=== PATIENT | male | born 1955 | race Caucasian/White ===

== ENCOUNTER 2016-10-27 17:52 | Inpatient (IN) ==
[2016-10-27] MEDS ORDERED: ONDANSETRON 4 MG/2 ML VIAL IV PRN (17:54)
[2016-10-27] MEDS ORDERED: LACTULOSE 20 GM/30 ML UDCUP PO PRN (17:54)
[2016-10-27] MEDS ORDERED: ACETAMINOPHEN 325 MG TABLET PO PRN (17:54)
--- NOTE | 2016-10-27 18:11 | Hospitalist History & Physical ---
Assessment and Plan (1) Hypertension Status: Acute Current Visit: Yes (2) BPH (benign prostatic hypertrophy) Status: Acute Current Visit: No (3) COPD (chronic obstructive pulmonary disease) with chronic bronchitis Status: Acute Assessment and plan: Plan for this patient #1 admit the patient our service #2 scheduled breathing treatments #3 of the steroids #4 IV antibiotics #5 home meds as appropriate #6 chest x-ray and basic labs Current Visit: No History of Present Illness Chief complaint: shortness of breath History of present illness: Mr. Bonilla is a 61 year old male past medical history significant for COPD and hypertension who was in his normal state of health until Tuesday. Patient at times are getting short of breath and a productive cough. He went to the [place] [facility] and was given a shot of Rocephin a Medrol Dosepak and it I week supply of Levaquin. Patient was doing nebulizer treatments at home thought he was doing well. He went back to work today. While at work he got significantly short of breath and then he went to Dr. Hernandez's office. When he saw Dr. Rg he felt that the patient needs to be admitted to the hospital. We've except to him as a direct transfer. Home Medications Medication Instructions Recorded Confirmed Type Amlodipine Besylate 10 mg PO DAILY 01/18/16 10/27/16 History Clopidogrel Bisulfate [Clopidogrel] 75 mg PO DAILY 01/18/16 10/27/16 History Gabapentin 300 mg PO TID 01/18/16 10/27/16 History Meloxicam 15 mg PO DAILY 01/18/16 10/27/16 History Montelukast Sodium 10 mg PO QPM 01/18/16 10/27/16 History Tamsulosin [Flomax] 0.4 mg PO DAILY 01/18/16 10/27/16 History Theophylline ER Tab 300 mg PO BID 01/18/16 10/27/16 History predniSONE TAB [PredniSONE] 40 mg PO DAILY #5 tablet 01/19/16 10/27/16 Rx Budesonide/Formoterol 160-4.5 2 puff INH BID 10/27/16 History [Symbicort 160-4.5] Sildenafil Citrate [Viagra] 100 mg PO DAILY PRN 10/27/16 History Umeclidinium [place] [Incruse 1 puff INH DAILY 10/27/16 History Ellipta] Allergies Allergy/AdvReac Type Severity Reaction Status Date / Time Penicillins Allergy HIVES Verified 01/17/16 22:44 vancomycin Allergy Agitated Verified 01/17/16 22:44 Medical,Surgical,& Family Hx - Medical History Cardio: History of: CAD, Hypertension Respiratory: History of: Asthma, Bronchitis, COPD - Surgical History Cardiac Surgeries: Sugical HX of: Cardiac Catheterization (with stents) - Family History Family History: noncontributory - Social History Smoking Status: Current some day smoker Frequency of Alcohol Use: Frequently Type of Drug Use: None 12 point system: reviewed and no additional remarkable complaints except as stated Exam - Constitutional General appearance: under weight - Head Head exam: Present: normal inspection - Eye Eye exam: Present: EOMI Pupils: Present: NIC - ENT ENT exam: Present: normal exam - Neck Neck exam: Present: normal inspection - Respiratory Respiratory exam: Present: wheezes - Cardiovascular Cardiovascular exam: Present: regular rate and rhythm - GI/Abdominal GI/Abdominal exam: Present: normal bowel sounds - Extremities Exam Extremities exam: Present: normal inspection - Back Exam Back exam: Present: normal inspection
[2016-10-27] MEDS ORDERED: ALBUTEROL/IPRATROPIUM 3 ML NEB RESP TX PRN (18:17)
[2016-10-27] MEDS: methylPREDNISolone SOD SUC 40 MG/1 ML VIAL IV SCH (18:53)
[2016-10-27] MEDS: LEVOFLOXACIN INJ 750 MG in PREMIX 1 EACH IV SCH (18:55)
[2016-10-27 19:01] LABS: Basophils % 0.4 % (0.0-0.8); Eosinophils % 0.2 % (0.00-10.9); Hematocrit 49.7 VOL% (42.0-52.0); Hemoglobin 16.5 GM/DL (14.0-18.0); Immature Granulocytes % 1.1 %; Immature Granulocytes Absolute 0.06 #; Lymphocytes # 1.5 10*3/uL (1.4-4.0); Lymphocytes % 27.4 % (21.2-54.2); Mean Corpuscular HGB Conc 33.2 GM/DL (32-36); Mean Corpuscular Hemoglobin 30 PG (27-34); Mean Corpuscular Volume 88.9 FL (87-102); Mean Platelet Volume 10.2 FL (9.6-12.0); Monocytes # 1.2 10*3/uL (0.11-0.8); Monocytes % 22.4 % (1.7-12.7); Neutrophils # 2.6 10*3/uL (1.4-7.4); Neutrophils % 48.5 % (38.7-73.9); Platelet Count 176 10*3/uL (130-400); Red Blood Count 5.59 10*6/uL (3.8-5.5); Red Cell Distribution Width 12.9 % (9.3-17.3); White Blood Count 5.4 10*3/uL (4.5-13.71)
[2016-10-27 19:23] LABS: Osmolality,Calculated 287.1 MOS/KG (273-304); Potassium 4.5 MMOL/L (3.5-5.1)
[2016-10-27 19:24] LABS: Band Neutrophils 1 % (0-10); Lymphocytes 28 % (20-55); Reactive Lymphocytes Few; Segmented Neutrophils 47 % (50-85); Total Cells Counted 100
[2016-10-27 19:25] LABS: Platelet Estimate Normal
--- NOTE | 2016-10-27 19:26 | XRay Report ---
XR chest 2V Indication: Shortness of breath. Comparison: Chest x-ray 01/18/2016. Technique: PA and lateral chest x-ray was performed. Findings: The heart size is within normal limits. The mediastinal contour demonstrates no significant abnormality. Minimal hyperinflation is noted on the lateral image. The lungs are clear. Bones and soft tissues demonstrate no acute abnormality. Impression: 1. No active cardiopulmonary disease. 10/27/2016 7:23 PM PROCEDURE INTERPRETED AT [facility] DEPARTMENT OF RADIOLOGY Final Report Signed by: Dr. Alexander Wong
[2016-10-27] MEDS: ALBUTEROL/IPRATROPIUM 3 ML NEB RESP TX SCH (21:09)
[2016-10-27] MEDS: GABAPENTIN 300 MG CAPSULE PO SCH (21:12)
[2016-10-27] MEDS: THEOPHYLLINE ER 300 MG TABLET PO SCH (21:12)
[2016-10-27] MEDS: BUDESONIDE/FORMOTEROL 160-4.5 INHALER 6 GM INH SCH (21:12)
[2016-10-27] MEDS: TAMSULOSIN 0.4 MG CAPSULE PO SCH (21:12)
[2016-10-28] MEDS: ALBUTEROL/IPRATROPIUM 3 ML NEB RESP TX SCH ×4 (02:05→19:08)
[2016-10-28] MEDS: methylPREDNISolone SOD SUC 40 MG/1 ML VIAL IV SCH ×3 (03:41→17:32)
[2016-10-28 04:46] LABS: Basophils % 0.3 % (0.0-0.8); Hematocrit 50.6 VOL% (42.0-52.0); Hemoglobin 16.4 GM/DL (14.0-18.0); Immature Granulocytes % 0.8 %; Immature Granulocytes Absolute 0.03 #; Lymphocytes # 0.8 10*3/uL (1.4-4.0); Lymphocytes % 21.1 % (21.2-54.2); Mean Corpuscular HGB Conc 32.4 GM/DL (32-36); Mean Corpuscular Hemoglobin 29 PG (27-34); Mean Corpuscular Volume 89.9 FL (87-102); Mean Platelet Volume 10.2 FL (9.6-12.0); Monocytes # 0.4 10*3/uL (0.11-0.8); Monocytes % 12.4 % (1.7-12.7); Neutrophils # 2.3 10*3/uL (1.4-7.4); Neutrophils % 65.4 % (38.7-73.9); Platelet Count 184 10*3/uL (130-400); Red Blood Count 5.63 10*6/uL (3.8-5.5); Red Cell Distribution Width 12.8 % (9.3-17.3); White Blood Count 3.6 10*3/uL (4.5-13.71)
[2016-10-28 05:17] LABS: Albumin 3.4 G/DL (3.4-5.0); Band Neutrophils 2 % (0-10); Bilirubin,Total 0.4 MG/DL (0.2-1.0); Calcium 8.8 MG/DL (8.5-10.1); Hypochromasia 1+; Lymphocytes 21 % (20-55); Microcytosis 1+; Osmolality,Calculated 292.1 MOS/KG (273-304); Potassium 4.9 MMOL/L (3.5-5.1); Segmented Neutrophils 66 % (50-85); Total Cells Counted 100
[2016-10-28 05:18] LABS: Platelet Estimate Adequate
--- NOTE | 2016-10-28 09:13 | Pulmonology Consult Note ---
Assessment and Plan (1) COPD (chronic obstructive pulmonary disease) with chronic bronchitis Status: Acute Assessment and plan: The patient comes in with a mild exacerbation of his COPD but does have chronic bronchitis. He is still coughing considerably and wheezing. He has been started on antibiotics and bronchodilators along with steroids and we'll see how he does. Current Visit: No (2) Smoker Status: Acute Assessment and plan: He has certainly been encouraged to try to quit smoking. Current Visit: No (3) Hypertension Status: Acute Assessment and plan: He denied any chest pain and his blood pressures under control. Current Visit: Yes History of Present Illness Chief complaint: shortness of breath History of present illness: Mr. Bonilla is a 61 year old white male that apparently has a long history of COPD and been followed by Dr. Clements in the past. He was scheduled to come in next week to the clinic. He apparently continues to smoke some cigarettes. He states that last week he had some cough and congestion and went to a walk-in clinic and was started on Levaquin and a Dosepak. He try to go back to work yesterday and felt worse so he was sent to the hospital. He continues to have a very harsh cough with thick sputum. He has been wheezing and short of breath. His chest x-ray shows COPD changes. He does use bronchodilators at home. He says he will try chewing tobacco to try to quit smoking. Home Medications Medication Instructions Recorded Confirmed Type Amlodipine Besylate 5 mg PO BEDTIME 01/18/16 10/27/16 History Clopidogrel Bisulfate [Clopidogrel] 75 mg PO DAILY 01/18/16 10/27/16 History Gabapentin 300 mg PO TID 01/18/16 10/27/16 History Meloxicam 15 mg PO DAILY 01/18/16 10/27/16 History Montelukast Sodium 10 mg PO DAILY 01/18/16 10/27/16 History Tamsulosin [Flomax] 0.4 mg PO BEDTIME 01/18/16 10/27/16 History Theophylline ER Tab 300 mg PO BID 01/18/16 10/27/16 History Budesonide/Formoterol 160-4.5 2 puff INH BID 10/27/16 10/27/16 History [Symbicort 160-4.5] Umeclidinium [place] [Incruse 1 puff INH DAILY 10/27/16 10/27/16 History Ellipta] Allergies Allergy/AdvReac Type Severity Reaction Status Date / Time Penicillins Allergy HIVES Verified 01/17/16 22:44 vancomycin Allergy Agitated Verified 01/17/16 22:44 - Constitutional Constitutional: Present: fatigue, weight loss. Absent: chills, fever(s) - EENT Eyes: Absent: loss of vision Ears: Absent: decreased hearing Nose, mouth and throat: Absent: dysphagia, headache(s), sinus pressure - Cardiovascular Cardiovascular: Present: dyspnea. Absent: chest pain at rest, orthopnea, palpitations, PND - Respiratory Respiratory: Present: cough, dyspnea, wheezing, change in phlegm color. Absent : hemoptysis, pain on inspiration - Gastrointestinal Gastrointestinal: Absent: abdominal pain, change in bowel habits, dysphagia, nausea, vomiting - Genitourinary Genitourinary: Absent: difficulty urinating, dysuria, urinary frequency - Musculoskeletal Musculoskeletal: Absent: arthralgias - Neurological Neurological: Absent: abnormal speech, focal weakness, paresthesias Exam (Pulmonay) H&P - Constitutional Vitals: Period Temp Pulse Resp BP Sys/Daniels Pulse Ox Last 24 Hr 96.7 F-98.4 F 74-102 16-22 101-138/59-71 81-99 General appearance: no acute distress, under weight, other (patient is a thin middle-aged man that looks comfortable at rest now.) - Head Head exam: Present: normal inspection, normocephalic - Eye Eye exam: Present: EOMI. Absent: scleral icterus Pupils: Present: NIC - ENT ENT exam: Present: normal exam - Neck Neck exam: Present: normal inspection. Absent: lymphadenopathy, thyromegaly - Respiratory Respiratory exam: Present: decreased breath sounds, prolonged expiratory phase, wheezes - Cardiovascular Cardiovascular exam: Present: regular rate and rhythm. Absent: gallop, systolic murmur - GI/Abdominal GI/Abdominal exam: Present: normal bowel sounds, soft. Absent: organomegaly, tenderness - Extremities Exam Extremities exam: Absent: calf tenderness, edema - Neurological Exam Neurological exam: Present: alert, oriented X3, CN II-XII intact - Psychiatric Psychiatric exam: Present: normal affect, normal mood - Skin Skin exam: Present: warm, dry Medical,Surgical,& Family Hx - Medical History Cardio: History of: CAD, Hypertension HEENT: History of: Eye Problem (glasses) Endocrine: No history of: Diabetes Mellitus (IDDM), Diabetes Mellitus (NIDDM) Respiratory: History of: Asthma, Bronchitis, COPD Musculoskeletal: History of: Back/Neck Problems - Surgical History Cardiac Surgeries: Sugical HX of: Cardiac Catheterization (with stents) Abdominal Surgeries: Surgical HX of: Appendectomy, Colonoscopy, EGD, Hernia Repair Orthopedic Surgeries: Surgical HX of;: Orthopedic Surgery (surgery right leg) - Family History Family History: Reports;: Family Cancer (son), Family Heart Disease (CA dad), Family Hematology (mother anemia), Family Hypertension (mother), Family Stroke ( mother) Denies;: Family Anesthesia Reaction, Family Diabetes - Social History Smoking Status: Current some day smoker Frequency of Alcohol Use: Frequently Type of Drug Use: None Results - Labs CBC & BMP: 10/28/16 04:28 10/28/16 04:28 - Diagnostic Findings Procedure: Chest x-ray: image reviewed by me, report reviewed by me (chest x- ray shows COPD changes but no infiltrates.) Specialty Discharge - Follow Up or Referrals - Discharge Medications No Action Theophylline ER Tab 300 mg PO BID Tamsulosin [Flomax] 0.4 mg PO BEDTIME Montelukast Sodium 10 mg PO DAILY Meloxicam 15 mg PO DAILY Gabapentin 300 mg PO TID Clopidogrel Bisulfate [Clopidogrel] 75 mg PO DAILY Amlodipine Besylate 5 mg PO BEDTIME Umeclidinium [place] [Incruse Ellipta] 1 puff INH DAILY Budesonide/Formoterol 160-4.5 [Symbicort 160-4.5] 2 puff INH BID
[2016-10-28] MEDS: MONTELUKAST 10 MG TABLET PO SCH (09:21)
[2016-10-28] MEDS: guaiFENesin/DM ER 600-30 MG TABLET PO PRN (09:21)
[2016-10-28] MEDS: CLOPIDOGREL 75 MG TABLET PO SCH (09:21)
[2016-10-28] MEDS: MELOXICAM 7.5 MG TABLET PO SCH (09:21)
[2016-10-28] MEDS: THEOPHYLLINE ER 300 MG TABLET PO SCH ×2 (09:22→21:05)
[2016-10-28] MEDS: PANTOPRAZOLE 40 MG TABLET PO SCH (09:22)
[2016-10-28] MEDS: GABAPENTIN 300 MG CAPSULE PO SCH ×3 (09:22→21:05)
[2016-10-28] MEDS: BUDESONIDE/FORMOTEROL 160-4.5 INHALER 6 GM INH SCH ×2 (09:25→21:05)
[2016-10-28] MEDS ORDERED: BENZONATATE 100 MG CAPSULE PO PRN (11:39)
--- NOTE | 2016-10-28 14:42 | Hospitalist Progress Note ---
Assessment and Plan (1) Hypertension Status: Acute Current Visit: Yes (2) BPH (benign prostatic hypertrophy) Status: Acute Current Visit: No (3) COPD (chronic obstructive pulmonary disease) with chronic bronchitis Status: Acute Assessment and plan: Plan for this patient #1 admit the patient our service #2 scheduled breathing treatments #3 of the steroids #4 IV antibiotics #5 home meds as appropriate #6 chest x-ray and basic labs 10/28/16 continue with current treament with steriods breathing treaments and antibiotics Pulmonary is folowing along with us Current Visit: No Hospitalist: Subjective Interval history: Patient is feeling a little better. Exam - Constitutional Vitals: Period Temp Pulse Resp BP Sys/Daniels Pulse Ox Last 24 Hr 96.7 F-98.4 F 74-102 16-22 101-139/59-71 81-99 - Constitutional General appearance: under weight - Head Head exam: Present: normal inspection - Eye Eye exam: Present: EOMI Pupils: Present: NIC - ENT ENT exam: Present: normal exam - Neck Neck exam: Present: normal inspection - Respiratory Respiratory exam: Present: wheezes - Cardiovascular Cardiovascular exam: Present: regular rate and rhythm - GI/Abdominal GI/Abdominal exam: Present: normal bowel sounds - Extremities Exam Extremities exam: Present: normal inspection - Back Exam Back exam: Present: normal inspection Results - Labs CBC & BMP: 10/28/16 04:28 10/28/16 04:28 Specialty Discharge - Follow Up or Referrals - Discharge Medications No Action Theophylline ER Tab 300 mg PO BID Tamsulosin [Flomax] 0.4 mg PO BEDTIME Montelukast Sodium 10 mg PO DAILY Meloxicam 15 mg PO DAILY Gabapentin 300 mg PO TID Clopidogrel Bisulfate [Clopidogrel] 75 mg PO DAILY Amlodipine Besylate 5 mg PO BEDTIME Umeclidinium [place] [Incruse Ellipta] 1 puff INH DAILY Budesonide/Formoterol 160-4.5 [Symbicort 160-4.5] 2 puff INH BID
[2016-10-28] MEDS: LEVOFLOXACIN INJ 750 MG in PREMIX 1 EACH IV SCH (17:32)
--- NOTE | 2016-10-28 18:14 | XRay Report ---
XR chest 2V Indication: Shortness of breath. Comparison: None. Technique: PA and lateral chest x-ray was performed. Findings: The heart size is within normal limits. The mediastinal contour demonstrates no significant abnormality. The lungs are clear. Bones and soft tissues demonstrate no acute abnormality. Impression: 1. No active cardiopulmonary disease. 10/28/2016 6:11 PM PROCEDURE INTERPRETED AT [facility] DEPARTMENT OF RADIOLOGY Final Report Signed by: Dr. Alexander Wong
[2016-10-28] MEDS: amLODIPine 5 MG TABLET PO SCH (21:05)
[2016-10-28] MEDS: TAMSULOSIN 0.4 MG CAPSULE PO SCH (21:05)
[2016-10-29] MEDS: ALBUTEROL/IPRATROPIUM 3 ML NEB RESP TX SCH ×6 (00:48→23:26)
[2016-10-29] MEDS: methylPREDNISolone SOD SUC 40 MG/1 ML VIAL IV SCH ×3 (03:34→17:08)
[2016-10-29] MEDS: MONTELUKAST 10 MG TABLET PO SCH (08:34)
[2016-10-29] MEDS: PANTOPRAZOLE 40 MG TABLET PO SCH (08:34)
[2016-10-29] MEDS: CLOPIDOGREL 75 MG TABLET PO SCH (08:34)
[2016-10-29] MEDS: THEOPHYLLINE ER 300 MG TABLET PO SCH ×2 (08:34→20:32)
[2016-10-29] MEDS: GABAPENTIN 300 MG CAPSULE PO SCH ×3 (08:34→20:32)
[2016-10-29] MEDS: MELOXICAM 7.5 MG TABLET PO SCH (08:34)
[2016-10-29] MEDS: BUDESONIDE/FORMOTEROL 160-4.5 INHALER 6 GM INH SCH ×2 (08:35→20:33)
--- NOTE | 2016-10-29 08:57 | Pulmonology Progress Note ---
Pulmonary - PN: Subj Interval history: The patient is a 61-year-old white male has significant COPD. He came in with an exacerbation mainly due to chronic bronchitis. He says he's doing a little better but is still coughing a lot. He still gets very short of breath easily and is still wheezing some. Otherwise he is feeling okay. He seems to be tolerating his medicines okay. Exam (Progress Note) - Constitutional Vitals: Period Temp Pulse Resp BP Sys/Daniels Pulse Ox Last 24 Hr 96.6 F-98.8 F 67-108 16-20 100-139/56-68 90-99 Exam: General appearance: no acute distress, under weight, other (patient is a thin middle-aged man that looks comfortable at rest now. He still has a harsh cough but his breathing comfortably at present.) - Head Head exam: Present: normal inspection, normocephalic - Eye Eye exam: Present: EOMI. Absent: scleral icterus Pupils: Present: NIC - ENT ENT exam: Present: normal exam - Neck Neck exam: Present: normal inspection. Absent: lymphadenopathy, thyromegaly - Respiratory Respiratory exam: Present: He still has very distant breath sounds with prolonged expiration and mild wheezing still. - Cardiovascular Cardiovascular exam: Present: regular rate and rhythm. Absent: gallop, systolic murmur - GI/Abdominal GI/Abdominal exam: Present: normal bowel sounds, soft. Absent: organomegaly, tenderness - Extremities Exam Extremities exam: Absent: calf tenderness, edema - Neurological Exam Neurological exam: Present: alert, oriented X3, CN II-XII intact - Psychiatric Psychiatric exam: Present: normal affect, normal mood - Skin Skin exam: Present: warm, dry Results - Labs CBC & BMP: 10/28/16 04:28 10/28/16 04:28 Assessment and Plan (1) COPD (chronic obstructive pulmonary disease) with chronic bronchitis Status: Acute Assessment and plan: The patient comes in with a mild exacerbation of his COPD but does have chronic bronchitis. He does look like he has severe lung dysfunction. He is still wheezing some. We will continue vigorous bronchodilator therapy. Current Visit: No (2) Smoker Status: Acute Assessment and plan: He has certainly been encouraged to try to quit smoking. He says is going try to chew tobacco. Current Visit: No (3) Hypertension Status: Acute Assessment and plan: He denied any chest pain and his blood pressures under control. Current Visit: Yes Specialty Discharge - Follow Up or Referrals - Discharge Medications No Action Theophylline ER Tab 300 mg PO BID Tamsulosin [Flomax] 0.4 mg PO BEDTIME Montelukast Sodium 10 mg PO DAILY Meloxicam 15 mg PO DAILY Gabapentin 300 mg PO TID Clopidogrel Bisulfate [Clopidogrel] 75 mg PO DAILY Amlodipine Besylate 5 mg PO BEDTIME Umeclidinium [place] [Incruse Ellipta] 1 puff INH DAILY Budesonide/Formoterol 160-4.5 [Symbicort 160-4.5] 2 puff INH BID
--- NOTE | 2016-10-29 11:11 | Hospitalist Progress Note ---
Assessment and Plan (1) Hypertension Status: Acute Current Visit: Yes (2) BPH (benign prostatic hypertrophy) Status: Acute Current Visit: No (3) COPD (chronic obstructive pulmonary disease) with chronic bronchitis Status: Acute Assessment and plan: Plan for this patient #1 admit the patient our service #2 scheduled breathing treatments #3 of the steroids #4 IV antibiotics #5 home meds as appropriate #6 chest x-ray and basic labs 10/28/16 continue with current treament with steriods breathing treaments and antibiotics Pulmonary is folowing along with us 10/29/16 Dr. Ferguson decreased the frequency of duo nebs to every 4 hours as opposed to every 6 hours Current Visit: No Hospitalist: Subjective Interval history: Patient still having significant shortness of breath and wheezing and cough Exam - Constitutional Vitals: Period Temp Pulse Resp BP Sys/Daniels Pulse Ox Last 24 Hr 96.6 F-98.8 F 67-108 16-20 100-139/56-68 90-99 - Constitutional General appearance: under weight - Head Head exam: Present: normal inspection - Eye Eye exam: Present: EOMI Pupils: Present: NIC - ENT ENT exam: Present: normal exam - Neck Neck exam: Present: normal inspection - Respiratory Respiratory exam: Present: significant wheezes - Cardiovascular Cardiovascular exam: Present: regular rate and rhythm - GI/Abdominal GI/Abdominal exam: Present: normal bowel sounds - Extremities Exam Extremities exam: Present: normal inspection - Back Exam Back exam: Present: normal inspection Results - Labs CBC & BMP: 10/28/16 04:28 10/28/16 04:28 Specialty Discharge - Follow Up or Referrals - Discharge Medications No Action Theophylline ER Tab 300 mg PO BID Tamsulosin [Flomax] 0.4 mg PO BEDTIME Montelukast Sodium 10 mg PO DAILY Meloxicam 15 mg PO DAILY Gabapentin 300 mg PO TID Clopidogrel Bisulfate [Clopidogrel] 75 mg PO DAILY Amlodipine Besylate 5 mg PO BEDTIME Umeclidinium [place] [Incruse Ellipta] 1 puff INH DAILY Budesonide/Formoterol 160-4.5 [Symbicort 160-4.5] 2 puff INH BID
[2016-10-29] MEDS: LEVOFLOXACIN INJ 750 MG in PREMIX 1 EACH IV SCH (17:08)
[2016-10-29] MEDS: amLODIPine 5 MG TABLET PO SCH (20:32)
[2016-10-29] MEDS: TAMSULOSIN 0.4 MG CAPSULE PO SCH (20:32)
[2016-10-30] MEDS: methylPREDNISolone SOD SUC 40 MG/1 ML VIAL IV SCH ×2 (01:32→09:33)
[2016-10-30] MEDS: ALBUTEROL/IPRATROPIUM 3 ML NEB RESP TX SCH ×5 (03:22→20:28)
[2016-10-30 05:45] LABS: Hematocrit 44.6 VOL% (42.0-52.0); Hemoglobin 14.5 GM/DL (14.0-18.0); Immature Granulocytes % 1.1 %; Immature Granulocytes Absolute 0.12 #; Lymphocytes # 0.4 10*3/uL (1.4-4.0); Lymphocytes % 3.8 % (21.2-54.2); Mean Corpuscular HGB Conc 32.5 GM/DL (32-36); Mean Corpuscular Hemoglobin 29 PG (27-34); Mean Corpuscular Volume 88.1 FL (87-102); Mean Platelet Volume 10.6 FL (9.6-12.0); Monocytes # 0.7 10*3/uL (0.11-0.8); Monocytes % 6.7 % (1.7-12.7); Neutrophils # 9.7 10*3/uL (1.4-7.4); Neutrophils % 88.4 % (38.7-73.9); Platelet Count 183 10*3/uL (130-400); Red Blood Count 5.06 10*6/uL (3.8-5.5); Red Cell Distribution Width 12.5 % (9.3-17.3); White Blood Count 10.9 10*3/uL (4.5-13.71)
[2016-10-30 06:11] LABS: Calcium 8.9 MG/DL (8.5-10.1); Osmolality,Calculated 294.1 MOS/KG (273-304); Potassium 4.7 MMOL/L (3.5-5.1)
[2016-10-30 06:35] LABS: Platelet Estimate Normal
[2016-10-30] MEDS ORDERED: NON-FORMULARY MEDICATION (Umeclidinium Bromide [Incruse Ellipta] 1 PUFF) INH SCH (09:00)
[2016-10-30] MEDS: THEOPHYLLINE ER 300 MG TABLET PO SCH ×2 (09:32→20:17)
[2016-10-30] MEDS: CLOPIDOGREL 75 MG TABLET PO SCH (09:32)
[2016-10-30] MEDS: GABAPENTIN 300 MG CAPSULE PO SCH ×3 (09:32→20:17)
[2016-10-30] MEDS: PANTOPRAZOLE 40 MG TABLET PO SCH (09:33)
[2016-10-30] MEDS: BUDESONIDE/FORMOTEROL 160-4.5 INHALER 6 GM INH SCH ×2 (09:33→20:18)
[2016-10-30] MEDS: MELOXICAM 7.5 MG TABLET PO SCH (09:33)
[2016-10-30] MEDS: MONTELUKAST 10 MG TABLET PO SCH (09:33)
--- NOTE | 2016-10-30 10:53 | Pulmonology Progress Note ---
Pulmonary - PN: Subj Interval history: This is a 61-year-old white male. I am seeing him for Dr. Leonardo Ferguson. This patient has COPD with bronchitis and bronchospasm. He is tolerating his treatments and is gradually improved. He has no new complaints and no new requests today. He says is mobilizing sputum and has still some discoloration. There is been no hemoptysis. The patient's previous chest x-rays have been reviewed by me. He has a small heart with enlarged pulmonary arteries and hyperinflated lung pickering. Microbiology. No positive cultures. Lab. Reviewed. CBC and BMP is stable. Creatinine is 1.2. Last theophylline level is 7.7 Physical exam. Vital signs. See below Psychiatric. Oriented 3 General. No apparent distress. Sitting on the bed leaning on the table. Neurologic. Cranial nerves are intact long track motor functions intact Neck. Symmetrical. No meningismus Lymphatics. No submandibular cervical supraclavicular or epitrochlear adenopathy Chest. Hyperinflated and kyphotic with generalized high-pitched wheezes to persist beyond the end of expiration. Heart. No gallop Abdomen nontender. Positive bowel sounds Extremities. Nothing to suggest deep venous thrombophlebitis The remainder the physical exam is negative. Plan. 1. Continue present regimen. 2. No medicine changes were made today. Exam (Progress Note) - Constitutional Vitals: Period Temp Pulse Resp BP Sys/Daniels Pulse Ox Last 24 Hr 97.4 F-98.6 F 64-97 16-22 107-160/56-72 90-100 Results - Labs CBC & BMP: 10/30/16 05:11 10/30/16 05:11 Specialty Discharge - Follow Up or Referrals - Discharge Medications No Action Theophylline ER Tab 300 mg PO BID Tamsulosin [Flomax] 0.4 mg PO BEDTIME Montelukast Sodium 10 mg PO DAILY Meloxicam 15 mg PO DAILY Gabapentin 300 mg PO TID Clopidogrel Bisulfate [Clopidogrel] 75 mg PO DAILY Amlodipine Besylate 5 mg PO BEDTIME Umeclidinium [place] [Incruse Ellipta] 1 puff INH DAILY Budesonide/Formoterol 160-4.5 [Symbicort 160-4.5] 2 puff INH BID
--- NOTE | 2016-10-30 14:12 | Hospitalist Progress Note ---
Assessment and Plan (1) COPD with acute exacerbation Status: Acute Current Visit: Yes (2) Acute bronchitis Status: Acute Current Visit: Yes (3) Smoker Status: Acute Current Visit: No (4) Hypertension Status: Acute Assessment and plan: Plan: 10/30: Continue bronchodilators, antibiotics, taper steroids, DuoNeb's. Unless imminent plans to do bronchoscopy can likely go home as early as tomorrow. He is ambulating the halls without difficulty, he's been told repeatedly to quit smoking. Current Visit: Yes Hospitalist: Subjective Interval history: Mr. Bonilla reports marked improvement since admission. Is actually able to walk the neumann without oxygen and tolerated this fairly well. He does not have/ use home oxygen. He had mentioned Dr. Ferguson talking about a possible bronchoscopy at some point, however I do not see this in the chart. He denies chest pain, nausea vomiting or diarrhea. Exam - Constitutional Vitals: Period Temp Pulse Resp BP Sys/Daniels Pulse Ox Last 24 Hr 97.4 F-98.6 F 64-98 16-22 118-160/56-74 90-100 Exam: EXAM: CONSTITUTIONAL: Thin, appears older than stated age non toxic, NAD HEENT: NC, AT, OP benign, NIC, EOMI CV: RRR no m/g/r RESP: Coarse bilaterally with expiratory wheezes and prolonged expiratory phase GI: abd soft, NT, ND, +bowel sounds INTEGUMENTARY: no lesions or rash EXTREMITIES: no c/c/e NEURO: no focal deficits PSYCH: unremarkable, A/O x3 Results - Labs CBC & BMP: 10/30/16 05:11 10/30/16 05:11 Lab Results: I have reviewed the past 24 hour labs Specialty Discharge - Follow Up or Referrals - Discharge Medications No Action Theophylline ER Tab 300 mg PO BID Tamsulosin [Flomax] 0.4 mg PO BEDTIME Montelukast Sodium 10 mg PO DAILY Meloxicam 15 mg PO DAILY Gabapentin 300 mg PO TID Clopidogrel Bisulfate [Clopidogrel] 75 mg PO DAILY Amlodipine Besylate 5 mg PO BEDTIME Umeclidinium [place] [Incruse Ellipta] 1 puff INH DAILY Budesonide/Formoterol 160-4.5 [Symbicort 160-4.5] 2 puff INH BID
[2016-10-30] MEDS: LEVOFLOXACIN INJ 750 MG in PREMIX 1 EACH IV SCH (17:29)
[2016-10-30] MEDS: amLODIPine 5 MG TABLET PO SCH (20:17)
[2016-10-30] MEDS: TAMSULOSIN 0.4 MG CAPSULE PO SCH (20:17)
[2016-10-31] MEDS: ALBUTEROL/IPRATROPIUM 3 ML NEB RESP TX SCH ×6 (00:48→19:51)
[2016-10-31 04:59] LABS: Basophils % 0.1 % (0.0-0.8); Hematocrit 43.3 VOL% (42.0-52.0); Hemoglobin 14.1 GM/DL (14.0-18.0); Immature Granulocytes % 2.2 %; Immature Granulocytes Absolute 0.19 #; Lymphocytes % 11.7 % (21.2-54.2); Mean Corpuscular HGB Conc 32.6 GM/DL (32-36); Mean Corpuscular Hemoglobin 29 PG (27-34); Mean Corpuscular Volume 88.5 FL (87-102); Mean Platelet Volume 10.2 FL (9.6-12.0); Monocytes # 1.1 10*3/uL (0.11-0.8); Monocytes % 12.5 % (1.7-12.7); Neutrophils # 6.2 10*3/uL (1.4-7.4); Neutrophils % 73.5 % (38.7-73.9); Platelet Count 149 10*3/uL (130-400); Red Blood Count 4.89 10*6/uL (3.8-5.5); Red Cell Distribution Width 12.5 % (9.3-17.3); White Blood Count 8.5 10*3/uL (4.5-13.71)
[2016-10-31 05:31] LABS: Calcium 8.4 MG/DL (8.5-10.1); Osmolality,Calculated 298.4 MOS/KG (273-304); Potassium 4.5 MMOL/L (3.5-5.1)
[2016-10-31] MEDS: GABAPENTIN 300 MG CAPSULE PO SCH ×3 (09:03→20:38)
[2016-10-31] MEDS: THEOPHYLLINE ER 300 MG TABLET PO SCH ×2 (09:04→20:38)
[2016-10-31] MEDS: CLOPIDOGREL 75 MG TABLET PO SCH (09:04)
[2016-10-31] MEDS: predniSONE 20 MG TABLET PO SCH (09:04)
[2016-10-31] MEDS: PANTOPRAZOLE 40 MG TABLET PO SCH (09:04)
[2016-10-31] MEDS: MELOXICAM 7.5 MG TABLET PO SCH (09:04)
[2016-10-31] MEDS: MONTELUKAST 10 MG TABLET PO SCH (09:04)
[2016-10-31] MEDS: BUDESONIDE/FORMOTEROL 160-4.5 INHALER 6 GM INH SCH ×2 (09:09→20:41)
--- NOTE | 2016-10-31 11:45 | Pulmonology Progress Note ---
Pulmonary - PN: Subj Interval history: 10/30/2016. This is a 61-year-old white male. I am seeing him for Dr. Leonardo Ferguson. This patient has COPD with bronchitis and bronchospasm. He is tolerating his treatments and is gradually improved. He has no new complaints and no new requests today. He says is mobilizing sputum and has still some discoloration. There is been no hemoptysis. The patient's previous chest x-rays have been reviewed by me. He has a small heart with enlarged pulmonary arteries and hyperinflated lung pickering. Microbiology. No positive cultures. 10/31/2016. Patient says disease is seen today as he was yesterday. No changes on his physical exam. His electrolytes are normal. Creatinine stable at 1.2. BUN is 32. H&H is stable at 14.1/43.3. White count is 8573.5 segs 11.7 lymphocytes and 12.5 monocytes. Platelets are 149,000. Lab. Reviewed. CBC and BMP is stable. Creatinine is 1.2. Last theophylline level is 7.7 Physical exam. Vital signs. See below Psychiatric. Oriented 3 General. No apparent distress. Sitting on the bed leaning on the table. Neurologic. Cranial nerves are intact long track motor functions intact Neck. Symmetrical. No meningismus Lymphatics. No submandibular cervical supraclavicular or epitrochlear adenopathy Chest. Hyperinflated and kyphotic with generalized high-pitched wheezes that persist beyond the end of expiration. Heart. No gallop Abdomen nontender. Positive bowel sounds Extremities. Nothing to suggest deep venous thrombophlebitis The remainder the physical exam is negative. Plan. 1. Continue present regimen. 2. No medicine changes were made today. Exam (Progress Note) - Constitutional Vitals: Period Temp Pulse Resp BP Sys/Daniels Pulse Ox Last 24 Hr 97.4 F-98.9 F 68-107 16-22 120-143/63-74 90-99 Results - Labs CBC & BMP: 10/31/16 04:36 10/31/16 04:36 Specialty Discharge - Follow Up or Referrals - Discharge Medications No Action Theophylline ER Tab 300 mg PO BID Tamsulosin [Flomax] 0.4 mg PO BEDTIME Montelukast Sodium 10 mg PO DAILY Meloxicam 15 mg PO DAILY Gabapentin 300 mg PO TID Clopidogrel Bisulfate [Clopidogrel] 75 mg PO DAILY Amlodipine Besylate 5 mg PO BEDTIME Umeclidinium [place] [Incruse Ellipta] 1 puff INH DAILY Budesonide/Formoterol 160-4.5 [Symbicort 160-4.5] 2 puff INH BID
--- NOTE | 2016-10-31 12:39 | Hospitalist Progress Note ---
Assessment and Plan (1) COPD with acute exacerbation Status: Acute Current Visit: Yes (2) Acute bronchitis Status: Acute Current Visit: Yes (3) Smoker Status: Acute Current Visit: No (4) Hypertension Status: Acute Assessment and plan: Plan: 10/30: Continue bronchodilators, antibiotics, taper steroids, DuoNeb's. Unless imminent plans to do bronchoscopy can likely go home as early as tomorrow. He is ambulating the halls without difficulty, he's been told repeatedly to quit smoking. 10/31: Continue current treatment. Dr. Ferguson will see again tomorrow and decide whether or not he needs a bronchoscopy. He is not having a productive cough and is ambulating the neumann without oxygen. I think he is about ready for discharge if no need for bronchoscopy. Current Visit: Yes Hospitalist: Subjective Interval history: Patient has no new complaints today. He is able to ambulate the neumann with little difficulty. His shortness of breath comes and goes. He does have a mildly nonproductive cough. Exam - Constitutional Vitals: Period Temp Pulse Resp BP Sys/Daniels Pulse Ox Last 24 Hr 97.6 F-98.9 F 68-107 16-22 106-143/55-74 90-99 Exam: EXAM: CONSTITUTIONAL: Thin, appears older than stated age non toxic, NAD HEENT: NC, AT, OP benign, NIC, EOMI CV: RRR no m/g/r RESP: Coarse bilaterally with expiratory wheezes and prolonged expiratory phase GI: abd soft, NT, ND, +bowel sounds INTEGUMENTARY: no lesions or rash EXTREMITIES: no c/c/e NEURO: no focal deficits PSYCH: unremarkable, A/O x3 Results - Labs CBC & BMP: 10/31/16 04:36 10/31/16 04:36 Lab Results: I have reviewed the past 24 hour labs Specialty Discharge - Follow Up or Referrals - Discharge Medications No Action Theophylline ER Tab 300 mg PO BID Tamsulosin [Flomax] 0.4 mg PO BEDTIME Montelukast Sodium 10 mg PO DAILY Meloxicam 15 mg PO DAILY Gabapentin 300 mg PO TID Clopidogrel Bisulfate [Clopidogrel] 75 mg PO DAILY Amlodipine Besylate 5 mg PO BEDTIME Umeclidinium [place] [Incruse Ellipta] 1 puff INH DAILY Budesonide/Formoterol 160-4.5 [Symbicort 160-4.5] 2 puff INH BID
[2016-10-31] MEDS: LEVOFLOXACIN INJ 750 MG in PREMIX 1 EACH IV SCH (17:16)
[2016-10-31] MEDS: amLODIPine 5 MG TABLET PO SCH (20:38)
[2016-10-31] MEDS: TAMSULOSIN 0.4 MG CAPSULE PO SCH (20:38)
[2016-11-01] MEDS: ALBUTEROL/IPRATROPIUM 3 ML NEB RESP TX SCH ×4 (00:32→11:52)
[2016-11-01] MEDS ORDERED: MIDAZOLAM 2 MG/2 ML VIAL IV ONE (08:01)
[2016-11-01] MEDS ORDERED: LIDOCAINE 2% VISCOUS 100 ML BOTTLE SWISH/SPIT ONE (08:01)
[2016-11-01] MEDS ORDERED: LIDOCAINE 1% 20 ML VIAL MISC INJ ONE (08:01)
[2016-11-01] MEDS ORDERED: LIDOCAINE 4% TOP SOLN 50 ML BOTTLE RESP TX ONE (08:01)
[2016-11-01] MEDS ORDERED: MEPERIDINE 50 MG/1 ML VIAL IM ONE (08:08)
[2016-11-01] MEDS ORDERED: PROMETHAZINE 25 MG/1 ML VIAL IM ONE (08:10)
[2016-11-01] MEDS ORDERED: PROMETHAZINE 25 MG/1 ML VIAL ONE (08:13)
[2016-11-01] MEDS ORDERED: MIDAZOLAM 2 MG/2 ML VIAL ONE (08:19)
--- NOTE | 2016-11-01 08:45 | Pulmonology Progress Note ---
Pulmonary - PN: Subj Interval history: The patient is a 61-year-old white male has significant COPD. He came in with an exacerbation mainly due to chronic bronchitis. He had a fairly good weekend but is still coughing some. He still gets short of breath on exertion but he is better. He does want to try a therapeutic bronchoscopy. Exam (Progress Note) - Constitutional Vitals: Period Temp Pulse Resp BP Sys/Daniels Pulse Ox Last 24 Hr 97.4 F-98.9 F 72-101 16-20 106-179/55-77 91-98 Exam: General appearance: no acute distress, under weight, other (patient is a thin middle-aged man that looks comfortable at rest now. He looks like he is breathing better and his cough overall sounds better.) - Head Head exam: Present: normal inspection, normocephalic - Eye Eye exam: Present: EOMI. Absent: scleral icterus Pupils: Present: NIC - ENT ENT exam: Present: normal exam - Neck Neck exam: Present: normal inspection. Absent: lymphadenopathy, thyromegaly - Respiratory Respiratory exam: Present: He still has very distant breath sounds with prolonged expiration but is moving air little better with less wheezing. - Cardiovascular Cardiovascular exam: Present: regular rate and rhythm. Absent: gallop, systolic murmur - GI/Abdominal GI/Abdominal exam: Present: normal bowel sounds, soft. Absent: organomegaly, tenderness - Extremities Exam Extremities exam: Absent: calf tenderness, edema - Neurological Exam Neurological exam: Present: alert, oriented X3, CN II-XII intact - Psychiatric Psychiatric exam: Present: normal affect, normal mood - Skin Skin exam: Present: warm, dry Results - Labs CBC & BMP: 10/31/16 04:36 10/31/16 04:36 Assessment and Plan (1) COPD (chronic obstructive pulmonary disease) with chronic bronchitis Status: Acute Assessment and plan: The patient comes in with a mild exacerbation of his COPD but does have chronic bronchitis. He does look like he has severe lung dysfunction. He is better but still says he can't clear secretions. We'll go ahead with a therapeutic bronchoscopy this morning. Current Visit: No (2) Smoker Status: Acute Assessment and plan: He has certainly been encouraged to try to quit smoking. He says is going try to chew tobacco. Current Visit: No (3) Hypertension Status: Acute Assessment and plan: He denied any chest pain and his blood pressure is under control. He has been stable hemodynamically. Current Visit: Yes Specialty Discharge - Follow Up or Referrals - Discharge Medications No Action Theophylline ER Tab 300 mg PO BID Tamsulosin [Flomax] 0.4 mg PO BEDTIME Montelukast Sodium 10 mg PO DAILY Meloxicam 15 mg PO DAILY Gabapentin 300 mg PO TID Clopidogrel Bisulfate [Clopidogrel] 75 mg PO DAILY Amlodipine Besylate 5 mg PO BEDTIME Umeclidinium [place] [Incruse Ellipta] 1 puff INH DAILY Budesonide/Formoterol 160-4.5 [Symbicort 160-4.5] 2 puff INH BID
--- NOTE | 2016-11-01 08:52 | Operative Note ---
Date of procedure: 11/01/16 Pre-op diagnosis: COPD with bronchitis Post-op diagnosis: other (vladimir bronchitis with mucous plugging. Considerable mucosal swelling of the right upper lobe.) Procedure: The patient is a 61-year-old with COPD and has been having trouble clearing secretions. A therapeutic bronchoscopy will be done to assess his airways and clear secretions. The patient was taken to the bronchoscopy lab and a timeout was done. Demerol 50 mg and Phenergan 25 mg IM was used for preop. Versed and topical lidocaine was used for anesthesia. Procedure: Fiberoptic bronchoscope was passed transnasally through the vocal cords into the lungs. The bronchopulmonary segment were identified and specimens obtained. Findings: The vocal cords, trachea, and shante were all unremarkable. The right upper lobe was plugged with very thick mucus. This was washed and cleared and there is marked bronchial mucosal swelling in the right upper lobe. A brush cytology was done in this area. The right middle lobe and right lower lobe looked unremarkable. The left upper lobe, lingula, and left lower lobe are all open. Washings were sent for culture and cytology. Once airways were cleared the procedure was stopped. He tolerated the procedure well without problems. Impression: Vladimir bronchitis and mucosal swelling of the right upper lobe but no definite endobronchial lesion. Mucus plugging and retained secretions were present. Plan: We will continue with steroids and antibiotics and bronchodilator therapy. He may need a follow-up bronchoscopy at a later date to recheck this right upper lobe. Anesthesia: conscious sedation Surgeon / Physician: Ranjeet Ferguson Estimated blood loss: none Specimens: other (washings and brushings were sent for cytology and culture) Condition: stable Disposition: floor Results - Labs CBC & BMP: 10/31/16 04:36 10/31/16 04:36 Discharge Plan - Discharge Medications No Action Theophylline ER Tab 300 mg PO BID Tamsulosin [Flomax] 0.4 mg PO BEDTIME Montelukast Sodium 10 mg PO DAILY Meloxicam 15 mg PO DAILY Gabapentin 300 mg PO TID Clopidogrel Bisulfate [Clopidogrel] 75 mg PO DAILY Amlodipine Besylate 5 mg PO BEDTIME Umeclidinium [place] [Incruse Ellipta] 1 puff INH DAILY Budesonide/Formoterol 160-4.5 [Symbicort 160-4.5] 2 puff INH BID - Follow Up or Referral - Forms/Instructions
--- NOTE | 2016-11-01 10:44 | Discharge Summary ---
Hospital Course - Hospital Course Hospital Course: Mr. Bonilla was admitted with acute COPD exacerbation with bronchitis. He responded well to antibiotics and steroids as well as bronchodilators. He had a bronchoscopy today showing bronchitis and mucosal swelling of the right upper lobe but no definite endobronchial lesion, along with mucus plugging and retained secretions were present. He has been emulating the hallway without difficulty and without oxygen. He appears comfortable after the procedure and will be discharged home later today on a course of oral antibiotics and steroids. He can follow up with Dr. Ferguson as needed. He may need a repeat bronchoscopy in the future. He was strongly encouraged to maintain smoking cessation as he has just quit recently. - Time spent with patient Time with patient DS: Greater than 30 minutes Time spent discussing smoking cessation with patient: 3 to 10 minutes Diagnosis - Discharge Diagnosis (1) COPD with acute exacerbation Status: Acute (2) Acute bronchitis Status: Acute (3) Smoker Status: Acute (4) Hypertension Status: Acute Specialty Discharge - Follow Up or Referrals Follow up with: Ranjeet Ferguson MD [Physician] - (at Dr Ferguson's discretion) - Discharge Medications No Action Theophylline ER Tab 300 mg PO BID Tamsulosin [Flomax] 0.4 mg PO BEDTIME Montelukast Sodium 10 mg PO DAILY Meloxicam 15 mg PO DAILY Gabapentin 300 mg PO TID Clopidogrel Bisulfate [Clopidogrel] 75 mg PO DAILY Amlodipine Besylate 5 mg PO BEDTIME Umeclidinium [place] [Incruse Ellipta] 1 puff INH DAILY Budesonide/Formoterol 160-4.5 [Symbicort 160-4.5] 2 puff INH BID Discharge Plan - Discharge Data Disposition: Disch To Home/Self Care Condition at Discharge: Stable - Discharge Medications New Levofloxacin Tab [Levaquin Tab] 500 mg PO DAILY #7 tablet guaiFENesin/DM ER 600-30 [Mucinex Dm] 1 tablet PO BID PRN 7 Days PRN Reason: Congestion predniSONE TAB [PredniSONE] 20 mg PO DAILY #21 tablet Continue Theophylline ER Tab 300 mg PO BID Tamsulosin [Flomax] 0.4 mg PO BEDTIME Montelukast Sodium 10 mg PO DAILY Meloxicam 15 mg PO DAILY Gabapentin 300 mg PO TID Clopidogrel Bisulfate [Clopidogrel] 75 mg PO DAILY Amlodipine Besylate 5 mg PO BEDTIME Umeclidinium [place] [Incruse Ellipta] 1 puff INH DAILY Budesonide/Formoterol 160-4.5 [Symbicort 160-4.5] 2 puff INH BID - Follow Up or Referral - Forms/Instructions Exam - Constitutional Vitals: Period Temp Pulse Resp BP Sys/Daniels Pulse Ox Last 24 Hr 97.4 F-98.9 F 72-127 12-20 93-180/55-112 15-98 Exam: EXAM: CONSTITUTIONAL: Thin, appears older than stated age non toxic, NAD HEENT: NC, AT, OP benign, NIC, EOMI CV: RRR no m/g/r RESP: Coarse bilaterally with expiratory wheezes and prolonged expiratory phase GI: abd soft, NT, ND, +bowel sounds INTEGUMENTARY: no lesions or rash EXTREMITIES: no c/c/e NEURO: no focal deficits PSYCH: unremarkable, A/O x3 Discharge Results Procedures and tests throughout hospitalization: Pending Orders 10/27/16 18:35 Blood Culture Routine 11/01/16 Bronchial Washings C & Gram St Routine 11/01/16 08:52 Cytology Request Routine Labs on day of discharge: Preliminary micro results at discharge 10/27/16 18:35 Blood Culture - Preliminary Blood No growth at 3 days 10/27/16 18:42 Blood Culture - Preliminary Blood No growth at 3 days DS: Provider Date of admission: 10/27/16 18:01 Primary care physician: Tisha Umaña DO Attending physician on admission: Enrico Del Cid MD Consults: 10/27/16 18:20 Consult to Pharmacy [CONS] Routine Reason for Pharmacy Consult: Adjust Meds Renal Funct 10/27/16 18:39 Consult to Physician [CONS] Routine Comment: COPD donot give to dr Solano Consulting Provider: Ranjeet Ferguson When should Consulting Provider be notified: In am 10/27/16 18:40 Consult to Pastoral Services [CONS] Routine Comment: Pastoral Screen: Request Veterinary Assistant Visit Discharging clinician: Nic Winn DO Expected date of discharge: 11/01/16
[2016-11-01] MEDS: CLOPIDOGREL 75 MG TABLET PO SCH (11:12)
[2016-11-01] MEDS: MELOXICAM 7.5 MG TABLET PO SCH (11:12)
[2016-11-01] MEDS: predniSONE 20 MG TABLET PO SCH (11:12)
[2016-11-01] MEDS: THEOPHYLLINE ER 300 MG TABLET PO SCH (11:12)
[2016-11-01] MEDS: guaiFENesin/DM ER 600-30 MG TABLET PO PRN (11:12)
[2016-11-01] MEDS: MONTELUKAST 10 MG TABLET PO SCH (11:13)
[2016-11-01] MEDS: PANTOPRAZOLE 40 MG TABLET PO SCH (11:13)
[2016-11-01] MEDS: GABAPENTIN 300 MG CAPSULE PO SCH (11:13)
[2016-11-01] MEDS: BUDESONIDE/FORMOTEROL 160-4.5 INHALER 6 GM INH SCH (11:15)
[2016-11-01 13:50] VITALS: BP 148/67
--- NOTE | 2016-11-02 11:15 | Pathology Report from [facility] ---
ACCESSION # : [id number] PATIENT NAME : David Bonilla ORDERING DR : LEXII THOMAS MD CLINICAL HX: COPD, Bronchitis, Broncospasm POST-OP DX: Same SPECIMEN INFO: Washing,Bronchial,RUL - 20 ml's bloody, cloudy with chunks. CLASS: III CLASS COMMENTS: Atypical squamous cells, acute inflammation, yeast spores. Consider biopsy.CELL BLOCK: Same CLASS LEGEND: CLASS 0 Material inadequate for diagnosis because of (see comment) CLASS I Absence of atypical or abnormal cells CLASS II Atypical Cytology but no evidence of malignancy CLASS III Cytology suggestive of but not conclusive for malignancy CLASS IV Cytology strongly suggestive of malignancy CLASS V Cytology conclusive for malignancy SERVICE DATE: 11/01/2016 REPORT DATE: 11/02/2016 PATHOLOGIST: Aishwarya Guallpa
--- NOTE | 2016-11-02 11:16 | Pathology Report from [facility] ---
ACCESSION # : [id number] PATIENT NAME : David Bonilla ORDERING DR : LEXII THOMAS MD CLINICAL HX: COPD, Bronchitis, Bronchospasm POST-OP DX: Same SPECIMEN INFO: Brushing,Bronchial,RUL- 1 brush (Received in [facility]). CLASS: III CLASS COMMENTS: Atypical squamous cellsCELL BLOCK: Same CLASS LEGEND: CLASS 0 Material inadequate for diagnosis because of (see comment) CLASS I Absence of atypical or abnormal cells CLASS II Atypical Cytology but no evidence of malignancy CLASS III Cytology suggestive of but not conclusive for malignancy CLASS IV Cytology strongly suggestive of malignancy CLASS V Cytology conclusive for malignancy SERVICE DATE: 11/01/2016 REPORT DATE: 11/02/2016 PATHOLOGIST: Aishwarya Guallpa
== END 2016-11-01 13:41 | disposition home or self-care (01) | DRG 192 ==
LOC: N.TELEN 18:01 → SUATTDRO 18:01
PROVIDERS: ADMIT Internal Medicine; ATTEND Internal Medicine
PROC: BRONCHB (2016-11-01 08:05)

== ENCOUNTER 2018-12-24 12:00 | Inpatient (IN) ==
[2018-12-24] MEDS ORDERED: methylPREDNISolone SOD SUC 125 MG/2 ML VIAL IV STA (12:20)
[2018-12-24] MEDS ORDERED: SODIUM CHLORIDE 0.9% 500 ML IV STA ×3 (12:20→14:52)
[2018-12-24] MEDS ORDERED: ONDANSETRON 4 MG/2 ML VIAL IV STA (12:20)
[2018-12-24] MEDS ORDERED: LEVOFLOXACIN INJ 750 MG in PREMIX 1 EACH IV STA (12:20)
[2018-12-24] MEDS ORDERED: ALBUTEROL NEB SOLN 5 MG/ML 20 ML/BOTTLE RESP TX SCH (12:30)
[2018-12-24 12:51] LABS: Basophils % 0.7 % (0.0-0.8); Eosinophils # 0.2 10*3/uL (0.0-0.87); Eosinophils % 2.5 % (0.00-10.9); Hematocrit 41.7 VOL% (42.0-52.0); Hemoglobin 13.7 GM/DL (14.0-18.0); Immature Granulocytes % 0.3 %; Immature Granulocytes Absolute 0.02 #; Lymphocytes # 0.6 10*3/uL (1.4-4.0); Lymphocytes % 9.4 % (21.2-54.2); Mean Corpuscular HGB Conc 32.9 GM/DL (32-36); Mean Corpuscular Hemoglobin 30 PG (27-34); Mean Corpuscular Volume 90.8 FL (87-102); Mean Platelet Volume 10.8 FL (9.6-12.0); Monocytes # 1.6 10*3/uL (0.11-0.8); Neutrophils # 3.6 10*3/uL (1.4-7.4); Neutrophils % 60.1 % (38.7-73.9); Platelet Count 157 T/CUMM (130-400); Red Blood Count 4.59 MC/CUMM (3.8-5.5); Red Cell Distribution Width 12.8 % (9.3-17.3)
[2018-12-24 13:06] LABS: Alanine Aminotransferase 17 U/L (16-61); Albumin 3.9 G/DL (3.4-5.0); Alkaline Phosphatase 73 U/L (45-117); Aspartate Amino Transferase 15 U/L (0-37); Blood Urea Nitrogen 23 MG/DL (7-18); Calcium 9.2 MG/DL (8.5-10.1); Glucose 89 MG/DL (74-106); INR 1.1; Osmolality,Calculated 283.3 MOS/KG (273-304); PT Patient Result 11.6 SECS; Potassium 4.6 MMOL/L (3.5-5.1); Sodium 141 MMOL/L (136-145); Total Protein 7.3 G/DL (6.4-8.3); Troponin I < 0.015 NG/ML (0.00-0.045)
[2018-12-24] MEDS ORDERED: ENOXAPARIN 60 MG/0.6 ML SYRINGE SUBCUT STA (15:59)
[2018-12-24] MEDS ORDERED: ACETAMINOPHEN 325 MG TABLET PO PRN (16:32)
[2018-12-24] MEDS ORDERED: ALBUTEROL 2.5 MG/3 ML NEB RESP TX PRN (16:32)
[2018-12-24] MEDS ORDERED: ONDANSETRON 4 MG/2 ML VIAL IV PRN (16:32)
[2018-12-24] MEDS ORDERED: guaiFENesin/DM ER 600-30 MG TABLET PO PRN (17:58)
[2018-12-24] MEDS: SODIUM CHLORIDE 0.9% 1,000 ML IV SCH (18:28)
[2018-12-24] MEDS ORDERED: Umeclidinium Brm/Vilanterol Tr [Anoro Ellipta] 1 PUFF INH SCH (19:00)
[2018-12-24] MEDS: ALBUTEROL/IPRATROPIUM 3 ML NEB RESP TX SCH (20:36)
[2018-12-24] MEDS: RANOLAZINE 500 MG TABLET PO SCH (20:51)
[2018-12-24] MEDS: TAMSULOSIN 0.4 MG CAPSULE PO SCH (20:52)
[2018-12-24] MEDS: NAPROXEN 250 MG TABLET PO SCH (20:52)
[2018-12-24] MEDS: methylPREDNISolone SOD SUC 40 MG/1 ML VIAL IV SCH (20:52)
[2018-12-25] MEDS: ALBUTEROL/IPRATROPIUM 3 ML NEB RESP TX SCH ×4 (00:35→19:11)
[2018-12-25] MEDS: methylPREDNISolone SOD SUC 40 MG/1 ML VIAL IV SCH ×3 (05:15→20:26)
[2018-12-25] MEDS: SODIUM CHLORIDE 0.9% 1,000 ML IV SCH ×2 (05:18→20:27)
[2018-12-25 07:22] LABS: Basophils % 0.2 % (0.0-0.8); Hematocrit 37.5 VOL% (42.0-52.0); Hemoglobin 12.2 GM/DL (14.0-18.0); Immature Granulocytes % 0.9 %; Immature Granulocytes Absolute 0.05 #; Lymphocytes # 0.5 10*3/uL (1.4-4.0); Lymphocytes % 7.9 % (21.2-54.2); Mean Corpuscular HGB Conc 32.5 GM/DL (32-36); Mean Corpuscular Hemoglobin 30 PG (27-34); Mean Corpuscular Volume 91.9 FL (87-102); Mean Platelet Volume 11.1 FL (9.6-12.0); Monocytes # 0.4 10*3/uL (0.11-0.8); Neutrophils # 4.9 10*3/uL (1.4-7.4); Platelet Count 162 T/CUMM (130-400); Red Blood Count 4.08 MC/CUMM (3.8-5.5); Red Cell Distribution Width 12.6 % (9.3-17.3); White Blood Count 5.9 T/CUMM (4-12)
[2018-12-25 07:42] LABS: Albumin 3.1 G/DL (3.4-5.0); Bilirubin,Total 0.8 MG/DL (0.2-1.0); Calcium 8.3 MG/DL (8.5-10.1); Osmolality,Calculated 285.5 MOS/KG (273-304); Total Protein 6.6 G/DL (6.4-8.3)
[2018-12-25] MEDS: PANTOPRAZOLE 40 MG TABLET PO SCH (08:37)
[2018-12-25] MEDS: NAPROXEN 250 MG TABLET PO SCH ×3 (08:37→20:26)
[2018-12-25] MEDS: RANOLAZINE 500 MG TABLET PO SCH ×2 (08:38→20:25)
[2018-12-25] MEDS: CYANOCOBALAMIN 500 MCG TABLET PO SCH (08:38)
[2018-12-25] MEDS: TAMSULOSIN 0.4 MG CAPSULE PO SCH ×2 (08:38→20:26)
[2018-12-25] MEDS: THEOPHYLLINE ER 300 MG TABLET PO SCH (08:38)
[2018-12-25] MEDS: ROFLUMILAST 500 MCG TABLET PO SCH (08:38)
[2018-12-25] MEDS: ASCORBIC ACID 500 MG TABLET PO SCH (08:38)
[2018-12-25] MEDS: ROSUVASTATIN 20 MG TABLET PO SCH (08:43)
[2018-12-25] MEDS: CLOPIDOGREL 75 MG TABLET PO SCH (08:43)
[2018-12-25] MEDS: ENOXAPARIN 40 MG/0.4 ML SYRINGE SUBCUT SCH (12:20)
[2018-12-25] MEDS: LEVOFLOXACIN INJ 250 MG in PREMIX 1 EACH IV SCH (14:05)
[2018-12-25] MEDS ORDERED: ENOXAPARIN 60 MG/0.6 ML SYRINGE SUBCUT SCH (15:00)
[2018-12-26] MEDS: ALBUTEROL/IPRATROPIUM 3 ML NEB RESP TX SCH ×4 (00:29→19:51)
[2018-12-26] MEDS: methylPREDNISolone SOD SUC 40 MG/1 ML VIAL IV SCH ×3 (04:23→21:17)
[2018-12-26] MEDS: ENOXAPARIN 40 MG/0.4 ML SYRINGE SUBCUT SCH ×2 (10:07→10:15)
[2018-12-26] MEDS: LEVOFLOXACIN INJ 250 MG in PREMIX 1 EACH IV SCH (10:07)
[2018-12-26] MEDS: ASCORBIC ACID 500 MG TABLET PO SCH (10:08)
[2018-12-26] MEDS: THEOPHYLLINE ER 300 MG TABLET PO SCH (10:08)
[2018-12-26] MEDS: ROSUVASTATIN 20 MG TABLET PO SCH (10:08)
[2018-12-26] MEDS: NAPROXEN 250 MG TABLET PO SCH ×3 (10:08→21:17)
[2018-12-26] MEDS: ROFLUMILAST 500 MCG TABLET PO SCH (10:08)
[2018-12-26] MEDS: PANTOPRAZOLE 40 MG TABLET PO SCH (10:08)
[2018-12-26] MEDS: TAMSULOSIN 0.4 MG CAPSULE PO SCH ×2 (10:08→21:17)
[2018-12-26] MEDS: RANOLAZINE 500 MG TABLET PO SCH ×2 (10:08→21:17)
[2018-12-26] MEDS: CLOPIDOGREL 75 MG TABLET PO SCH (10:08)
[2018-12-26] MEDS: CYANOCOBALAMIN 500 MCG TABLET PO SCH (10:09)
[2018-12-26 11:16] LABS: Basophils % 0.1 % (0.0-0.8); Hematocrit 39.6 VOL% (42.0-52.0); Hemoglobin 12.9 GM/DL (14.0-18.0); Immature Granulocytes % 1.4 %; Immature Granulocytes Absolute 0.19 #; Lymphocytes # 0.5 10*3/uL (1.4-4.0); Lymphocytes % 3.9 % (21.2-54.2); Mean Corpuscular HGB Conc 32.6 GM/DL (32-36); Mean Corpuscular Hemoglobin 30 PG (27-34); Mean Platelet Volume 10.7 FL (9.6-12.0); Monocytes # 0.9 10*3/uL (0.11-0.8); Monocytes % 6.9 % (1.7-12.7); Neutrophils # 11.9 10*3/uL (1.4-7.4); Neutrophils % 87.7 % (38.7-73.9); Platelet Count 191 T/CUMM (130-400); Red Blood Count 4.26 MC/CUMM (3.8-5.5); White Blood Count 13.6 T/CUMM (4-12)
[2018-12-26 11:32] LABS: Potassium 5.2 MMOL/L (3.5-5.1)
[2018-12-26 11:42] LABS: Lymphocytes 1 % (20-55); Segmented Neutrophils 95 % (50-85); Total Cells Counted 100
[2018-12-26 11:44] LABS: Ovalocytes Few; Platelet Estimate Normal; Polychromasia Slight
[2018-12-26] MEDS: SODIUM CHLORIDE 0.9% 1,000 ML IV SCH (12:54)
[2018-12-27] MEDS: ALBUTEROL/IPRATROPIUM 3 ML NEB RESP TX SCH ×2 (00:10→07:55)
[2018-12-27] MEDS: SODIUM CHLORIDE 0.9% 1,000 ML IV SCH (03:35)
[2018-12-27] MEDS: methylPREDNISolone SOD SUC 40 MG/1 ML VIAL IV SCH ×2 (04:46→12:13)
[2018-12-27 04:53] LABS: Basophils % 0.3 % (0.0-0.8); Hematocrit 36.9 VOL% (42.0-52.0); Immature Granulocytes % 4.3 %; Immature Granulocytes Absolute 0.56 #; Lymphocytes # 0.7 10*3/uL (1.4-4.0); Lymphocytes % 5.2 % (21.2-54.2); Mean Corpuscular HGB Conc 32.5 GM/DL (32-36); Mean Corpuscular Hemoglobin 30 PG (27-34); Mean Corpuscular Volume 92.7 FL (87-102); Mean Platelet Volume 10.7 FL (9.6-12.0); Neutrophils # 10.7 10*3/uL (1.4-7.4); Neutrophils % 82.2 % (38.7-73.9); Platelet Count 176 T/CUMM (130-400); Red Blood Count 3.98 MC/CUMM (3.8-5.5)
[2018-12-27 05:23] LABS: Calcium 8.2 MG/DL (8.5-10.1); Calcium 8.4 MG/DL (8.5-10.1); Osmolality,Calculated 292.8 MOS/KG (273-304); Osmolality,Calculated 296.7 MOS/KG (273-304); Potassium 5.2 MMOL/L (3.5-5.1); Potassium 5.3 MMOL/L (3.5-5.1)
[2018-12-27 05:33] LABS: Hypochromasia Slight; Lymphocytes 2 % (20-55); Ovalocytes Slight; Platelet Estimate Adequate; Segmented Neutrophils 94 % (50-85); Total Cells Counted 100
[2018-12-27] MEDS: NAPROXEN 250 MG TABLET PO SCH (09:00)
[2018-12-27] MEDS: CYANOCOBALAMIN 500 MCG TABLET PO SCH (09:00)
[2018-12-27] MEDS: CLOPIDOGREL 75 MG TABLET PO SCH (09:00)
[2018-12-27] MEDS: ROSUVASTATIN 20 MG TABLET PO SCH (09:00)
[2018-12-27] MEDS: THEOPHYLLINE ER 300 MG TABLET PO SCH (09:00)
[2018-12-27] MEDS ORDERED: LEVOFLOXACIN INJ 750 MG in PREMIX 1 EACH IV SCH (09:00)
[2018-12-27] MEDS: ASCORBIC ACID 500 MG TABLET PO SCH (09:00)
[2018-12-27] MEDS ORDERED: METOPROLOL SUCCINATE XL 100 MG TABLET PO SCH (09:00)
[2018-12-27] MEDS: ROFLUMILAST 500 MCG TABLET PO SCH (09:00)
[2018-12-27] MEDS: RANOLAZINE 500 MG TABLET PO SCH (09:00)
[2018-12-27] MEDS: TAMSULOSIN 0.4 MG CAPSULE PO SCH (09:00)
[2018-12-27] MEDS: ENOXAPARIN 40 MG/0.4 ML SYRINGE SUBCUT SCH (09:00)
[2018-12-27] MEDS: PANTOPRAZOLE 40 MG TABLET PO SCH (09:00)
[2018-12-27 12:02] VITALS: BP 164/69
== END 2018-12-27 12:45 | disposition home or self-care (01) | DRG 191 ==
LOC: N.EDINP 12:00 → N.ED 12:00 → SUATTDRO 16:32 → N.EDINP 17:35 → N.2E 17:51
PROVIDERS: ADMIT Internal Medicine; ATTEND Internal Medicine

== ENCOUNTER 2019-01-18 06:50 | Observation (INO) ==
[2019-01-18] MEDS ORDERED: ASPIRIN 325 MG TABLET PO STA (07:14)
[2019-01-18] MEDS ORDERED: NITROGLYCERIN 2% OINT 1 INCH/GM PACK TOP STA (07:14)
[2019-01-18] MEDS ORDERED: ALUM/MAG/SIMETH/LIDO VISC 1:1 30 ML BOTTLE PO STA (07:14)
[2019-01-18 07:46] LABS: Basophils % 0.4 % (0.0-0.8); Eosinophils # 0.2 10*3/uL (0.0-0.87); Eosinophils % 2.9 % (0.00-10.9); Hematocrit 45.3 VOL% (42.0-52.0); Hemoglobin 14.5 GM/DL (14.0-18.0); Immature Granulocytes % 0.6 %; Immature Granulocytes Absolute 0.04 #; Lymphocytes # 0.8 10*3/uL (1.4-4.0); Lymphocytes % 11.2 % (21.2-54.2); Mean Corpuscular Hemoglobin 30 PG (27-34); Mean Corpuscular Volume 93.2 FL (87-102); Mean Platelet Volume 11.3 FL (9.6-12.0); Monocytes # 0.9 10*3/uL (0.11-0.8); Monocytes % 12.4 % (1.7-12.7); Neutrophils # 5.1 10*3/uL (1.4-7.4); Neutrophils % 72.5 % (38.7-73.9); Platelet Count 143 T/CUMM (130-400); Red Blood Count 4.86 MC/CUMM (3.8-5.5); Red Cell Distribution Width 12.5 % (9.3-17.3)
[2019-01-18 07:53] LABS: INR 0.9; PT Patient Result 10.2 SECS; Partial Thromboplastin Time 25.7 SECS (0-40)
[2019-01-18 08:02] LABS: Hypochromasia 1+; Platelet Estimate Adequate
[2019-01-18 08:05] LABS: Albumin 3.5 G/DL (3.4-5.0); Bilirubin,Total 0.7 MG/DL (0.2-1.0); Osmolality,Calculated 286.1 MOS/KG (273-304); Potassium 4.7 MMOL/L (3.5-5.1); Total Protein 7.2 G/DL (6.4-8.3)
[2019-01-18] MEDS ORDERED: DOCUSATE SODIUM 100 MG CAPSULE PO PRN (08:50)
[2019-01-18] MEDS ORDERED: MAGNESIUM SULF RIDER 2 GM in PREMIX 1 EACH IV PRN (08:50)
[2019-01-18] MEDS ORDERED: ONDANSETRON 4 MG/2 ML VIAL IV PRN (08:50)
[2019-01-18] MEDS ORDERED: MAGNESIUM SULF RIDER 4 GM in PREMIX 1 EACH IV PRN (08:50)
[2019-01-18] MEDS ORDERED: ACETAMINOPHEN 325 MG TABLET PO PRN (08:50)
[2019-01-18] MEDS ORDERED: POTASSIUM CHLORIDE 20 MEQ TABLET PO PRN (08:50)
[2019-01-18] MEDS ORDERED: ZALEPLON 5 MG CAPSULE PO PRN (08:50)
[2019-01-18] MEDS ORDERED: NITROGLYCERIN SL 0.4 MG TABLET SL PRN (08:55)
[2019-01-18] MEDS ORDERED: RANOLAZINE 500 MG TABLET PO SCH (09:00)
[2019-01-18] MEDS ORDERED: ASPIRIN EC 81 MG TABLET PO SCH (09:00)
[2019-01-18] MEDS ORDERED: METOPROLOL SUCCINATE XL 100 MG TABLET PO SCH (09:00)
[2019-01-18] MEDS ORDERED: ASCORBIC ACID 500 MG TABLET PO SCH (09:00)
[2019-01-18] MEDS ORDERED: ALBUTEROL 2.5 MG/3 ML NEB RESP TX PRN (10:41)
[2019-01-18] MEDS: SODIUM CHLORIDE 0.9% 1,000 ML IV SCH (11:25)
[2019-01-18] MEDS: ROSUVASTATIN 20 MG TABLET PO SCH (11:25)
[2019-01-18] MEDS: PANTOPRAZOLE 40 MG TABLET PO SCH (11:25)
[2019-01-18] MEDS: CLOPIDOGREL 75 MG TABLET PO SCH (11:27)
[2019-01-18] MEDS: ALBUTEROL/IPRATROPIUM 3 ML NEB RESP TX SCH ×2 (12:09→19:15)
[2019-01-18] MEDS: SUCRALFATE 1 GM/10 ML UDCUP PO SCH ×2 (16:38→22:11)
[2019-01-18] MEDS ORDERED: ROFLUMILAST 500 MCG TABLET PO SCH (21:00)
[2019-01-18] MEDS ORDERED: NAPROXEN 250 MG TABLET PO SCH (21:00)
[2019-01-18] MEDS: METOPROLOL TARTRATE 25 MG TABLET PO SCH (22:11)
[2019-01-18] MEDS: RANOLAZINE 500 MG TABLET PO SCH (22:11)
[2019-01-19] MEDS: ALBUTEROL/IPRATROPIUM 3 ML NEB RESP TX SCH ×3 (00:36→13:24)
[2019-01-19] MEDS: SODIUM CHLORIDE 0.9% 1,000 ML IV SCH ×2 (01:28→14:38)
[2019-01-19 05:17] LABS: Basophils % 0.5 % (0.0-0.8); Eosinophils # 0.2 10*3/uL (0.0-0.87); Hematocrit 38.4 VOL% (42.0-52.0); Hemoglobin 12.4 GM/DL (14.0-18.0); Immature Granulocytes % 0.5 %; Immature Granulocytes Absolute 0.03 #; Lymphocytes % 17.9 % (21.2-54.2); Mean Corpuscular HGB Conc 32.3 GM/DL (32-36); Mean Corpuscular Hemoglobin 30 PG (27-34); Mean Corpuscular Volume 91.9 FL (87-102); Monocytes # 0.8 10*3/uL (0.11-0.8); Monocytes % 14.1 % (1.7-12.7); Neutrophils # 3.5 10*3/uL (1.4-7.4); Platelet Count 132 T/CUMM (130-400); Red Blood Count 4.18 MC/CUMM (3.8-5.5); Red Cell Distribution Width 12.4 % (9.3-17.3); White Blood Count 5.5 T/CUMM (4-12)
[2019-01-19 05:42] LABS: Calcium 8.4 MG/DL (8.5-10.1); Osmolality,Calculated 290.7 MOS/KG (273-304); Potassium 4.6 MMOL/L (3.5-5.1)
[2019-01-19] MEDS ORDERED: THEOPHYLLINE ER 300 MG TABLET PO SCH (09:00)
[2019-01-19] MEDS ORDERED: NAPROXEN 250 MG TABLET PO SCH (09:00)
[2019-01-19] MEDS ORDERED: ASPIRIN EC 81 MG TABLET PO SCH (09:00)
[2019-01-19] MEDS ORDERED: Umeclidinium Brm/Vilanterol Tr [Anoro Ellipta] 1 PUFF INH SCH (09:00)
[2019-01-19] MEDS ORDERED: CYANOCOBALAMIN 500 MCG TABLET PO SCH (09:00)
[2019-01-19] MEDS: ROSUVASTATIN 20 MG TABLET PO SCH (09:41)
[2019-01-19] MEDS: RANOLAZINE 500 MG TABLET PO SCH (09:42)
[2019-01-19] MEDS: SUCRALFATE 1 GM/10 ML UDCUP PO SCH ×2 (09:42→12:29)
[2019-01-19] MEDS: METOPROLOL TARTRATE 25 MG TABLET PO SCH (09:42)
[2019-01-19] MEDS: CLOPIDOGREL 75 MG TABLET PO SCH (09:42)
[2019-01-19] MEDS: PANTOPRAZOLE 40 MG TABLET PO SCH (09:42)
[2019-01-19 16:26] VITALS: BP 106/62
== END 2019-01-19 17:15 | disposition home or self-care (01) ==
LOC: N.ED 06:50 → N.EDINP 06:50 → N.TELEN 10:24
PROVIDERS: ADMIT Internal Medicine Cardiovascular Disease; ATTEND Internal Medicine Cardiovascular Disease

== ENCOUNTER 2019-07-19 08:23 | Observation (INO) ==
[2019-07-19] MEDS ORDERED: SODIUM CHLORIDE 0.9% 1,000 ML IV STA (09:09)
[2019-07-19 09:19] LABS: Basophils % 0.7 % (0.0-0.8); Eosinophils # 0.2 10*3/uL (0.0-0.87); Eosinophils % 3.2 % (0.00-10.9); Hematocrit 43.6 VOL% (42.0-52.0); Immature Granulocytes % 0.3 %; Immature Granulocytes Absolute 0.02 #; Lymphocytes # 0.6 10*3/uL (1.4-4.0); Lymphocytes % 10.7 % (21.2-54.2); Mean Corpuscular HGB Conc 32.1 GM/DL (32-36); Mean Corpuscular Volume 86.5 FL (87-102); Monocytes % 8.2 % (1.7-12.7); Neutrophils % 76.9 % (38.7-73.9); Platelet Count 165 T/CUMM (130-400); Red Blood Count 5.04 MC/CUMM (3.8-5.5); Red Cell Distribution Width 14.1 % (9.3-17.3)
[2019-07-19 09:46] LABS: Albumin 3.3 G/DL (3.4-5.0); Bilirubin,Total 1.3 MG/DL (0.2-1.0); Calcium 9.7 MG/DL (8.5-10.1); Osmolality,Calculated 290.1 MOS/KG (273-304); Total Protein 6.7 G/DL (6.4-8.3)
[2019-07-19] MEDS ORDERED: ONDANSETRON 4 MG/2 ML VIAL IV PRN (11:40)
[2019-07-19] MEDS ORDERED: ENOXAPARIN 40 MG/0.4 ML SYRINGE SUBCUT SCH (12:00)
[2019-07-19] MEDS ORDERED: ALBUTEROL/IPRATROPIUM 3 ML NEB RESP TX PRN (12:12)
[2019-07-19] MEDS ORDERED: ALBUTEROL 2.5 MG/3 ML NEB RESP TX PRN (12:12)
[2019-07-19] MEDS ORDERED: NICOTINE 21 MG/24 HR PATCH TRANSDERM PRN (12:17)
[2019-07-19] MEDS: SODIUM CHLORIDE 0.9% 1,000 ML IV SCH (14:18)
[2019-07-19] MEDS: ACETAMINOPHEN 325 MG TABLET PO PRN ×2 (14:18→20:31)
[2019-07-19 16:44] LABS: Apearance,Urine CLEAR (Clear); Bacteria,Urine Occasional /HPF (Few); Bilirubin,Urine Negative (Negative); Blood, Urine Negative (Negative); Glucose,Urine (UA) Negative (Negative); Hyaline Casts,Urine 6 /LPF (0-3); Ketones,Urine Negative (Negative); Mucus,Urine Occasional /LPF (Occasional); Nitrite,Urine Negative (Negative); Protein,Urine Negative; RBC,Urine 1 /HPF (0-4); Urine Color Yellow (Yellow); Urine Specific Gravity 1.011 (1.001-1.035); Urine Urobilinogen < 2.0 EU/DL (0.2-1.0); WBC,Urine 3 /HPF (0-6)
[2019-07-19] MEDS: TAMSULOSIN 0.4 MG CAPSULE PO SCH (20:29)
[2019-07-19] MEDS: METOPROLOL SUCCINATE XL 25 MG TABLET PO SCH (20:29)
[2019-07-19] MEDS ORDERED: ROFLUMILAST 500 MCG TABLET PO SCH (21:00)
[2019-07-19] MEDS ORDERED: RANOLAZINE 500 MG TABLET PO SCH (21:00)
[2019-07-20] MEDS: SODIUM CHLORIDE 0.9% 1,000 ML IV SCH ×2 (00:08→09:07)
[2019-07-20 04:49] LABS: Basophils % 0.8 % (0.0-0.8); Eosinophils # 0.2 10*3/uL (0.0-0.87); Eosinophils % 4.8 % (0.00-10.9); Hematocrit 39.1 VOL% (42.0-52.0); Hemoglobin 12.1 GM/DL (14.0-18.0); Immature Granulocytes % 0.3 %; Immature Granulocytes Absolute 0.01 #; Lymphocytes # 0.9 10*3/uL (1.4-4.0); Mean Corpuscular HGB Conc 30.9 GM/DL (32-36); Mean Corpuscular Volume 89.3 FL (87-102); Mean Platelet Volume 10.6 FL (9.6-12.0); Monocytes % 17.1 % (1.7-12.7); Platelet Count 128 T/CUMM (130-400); Red Blood Count 4.38 MC/CUMM (3.8-5.5); Red Cell Distribution Width 14.1 % (9.3-17.3); White Blood Count 3.8 T/CUMM (4-12)
[2019-07-20 05:32] LABS: Anisocytosis 1+; Eosinophils 1 % (0-10); Lymphocytes 19 % (20-55); Platelet Estimate Decreased; Segmented Neutrophils 69 % (50-85); Total Cells Counted 100
[2019-07-20 05:39] LABS: Calcium 8.8 MG/DL (8.5-10.1); Osmolality,Calculated 287.8 MOS/KG (273-304); Risk Ratio 1.92; Thyroid Stimulating Hormone 0.854 uIU/ml (0.358-3.74); VLDL CHOLESTEROL 15.4 MG/DL
[2019-07-20 07:17] VITALS: BP 127/67
[2019-07-20] MEDS ORDERED: ASPIRIN EC 81 MG TABLET PO SCH (09:00)
[2019-07-20] MEDS ORDERED: ROSUVASTATIN 20 MG TABLET PO SCH (09:00)
[2019-07-20] MEDS ORDERED: THEOPHYLLINE ER 300 MG TABLET PO SCH (09:00)
[2019-07-20] MEDS ORDERED: PANTOPRAZOLE 40 MG TABLET PO SCH (09:00)
[2019-07-20] MEDS ORDERED: CLOPIDOGREL 75 MG TABLET PO SCH (09:00)
[2019-07-20] MEDS: METOPROLOL SUCCINATE XL 25 MG TABLET PO SCH (09:06)
[2019-07-20] MEDS: TAMSULOSIN 0.4 MG CAPSULE PO SCH (09:06)
== END 2019-07-20 11:58 | disposition home or self-care (01) ==
LOC: N.ED 08:23 → N.EDINP 08:23 → N.5E 11:19
PROVIDERS: ADMIT Emergency Medicine; ATTEND Emergency Medicine

== ENCOUNTER 2019-11-11 19:43 | Inpatient (IN) ==
[2019-11-11] MEDS ORDERED: ALBUTEROL 2.5 MG/3 ML NEB RESP TX STA ×2 (20:19→22:18)
[2019-11-11] MEDS ORDERED: ALBUTEROL/IPRATROPIUM 3 ML NEB RESP TX STA (20:19)
[2019-11-11] MEDS ORDERED: SODIUM CHLORIDE 0.9% 1,000 ML IV STA (20:19)
[2019-11-11] MEDS ORDERED: ONDANSETRON 4 MG/2 ML VIAL IV ONE (20:19)
[2019-11-11] MEDS ORDERED: methylPREDNISolone SOD SUC 125 MG/2 ML VIAL IV STA (20:19)
[2019-11-11 20:43] LABS: Basophils % 0.7 % (0.0-0.8); Eosinophils # 0.1 10*3/uL (0.0-0.87); Hematocrit 41.4 VOL% (42.0-52.0); Hemoglobin 13.4 GM/DL (14.0-18.0); Immature Granulocytes % 0.2 %; Immature Granulocytes Absolute 0.01 #; Lymphocytes # 0.8 10*3/uL (1.4-4.0); Lymphocytes % 18.4 % (21.2-54.2); Mean Corpuscular HGB Conc 32.4 GM/DL (32-36); Mean Corpuscular Volume 84.8 FL (87-102); Mean Platelet Volume 10.5 FL (9.6-12.0); Neutrophils % 51.7 % (38.7-73.9); Platelet Count 121 T/CUMM (130-400); Red Blood Count 4.88 MC/CUMM (3.8-5.5); Red Cell Distribution Width 13.3 % (9.3-17.3); White Blood Count 4.3 T/CUMM (4-12)
[2019-11-11 20:50] LABS: PT Patient Result 10.7 SECS (9.6-12.2)
[2019-11-11 21:05] LABS: Albumin 3.5 G/DL (3.4-5.0); Bilirubin,Total 0.5 MG/DL (0.2-1.0); Osmolality,Calculated 283.4 MOS/KG (273-304); Total Protein 7.2 G/DL (6.4-8.3)
[2019-11-11 21:11] LABS: Troponin I < 0.015 NG/ML (0.00-0.045)
[2019-11-11 21:18] LABS: Eosinophils 3 % (0-10); Hypochromasia Slight; Lymphocytes 20 % (20-55); Microcytosis 1+; Platelet Estimate Adequate; Segmented Neutrophils 55 % (50-85); Total Cells Counted 100
[2019-11-11 21:20] LABS: Ovalocytes Slight
[2019-11-11] MEDS ORDERED: MEROPENEM 2,000 MG in SODIUM CHLORIDE 0.9% 100 ML IV ONE (21:25)
[2019-11-11] MEDS ORDERED: LEVALBUTEROL 1.25 MG/3 ML NEB RESP TX STA (22:45)
[2019-11-12] MEDS ORDERED: ACETAMINOPHEN 325 MG TABLET PO PRN (00:12)
[2019-11-12] MEDS ORDERED: POTASSIUM CHLORIDE 20 MEQ TABLET PO PRN (00:12)
[2019-11-12] MEDS ORDERED: NITROGLYCERIN SL 0.4 MG TABLET SL PRN (00:12)
[2019-11-12] MEDS ORDERED: DOCUSATE SODIUM 100 MG CAPSULE PO PRN (00:12)
[2019-11-12] MEDS ORDERED: ONDANSETRON 4 MG/2 ML VIAL IV PRN (00:12)
[2019-11-12] MEDS ORDERED: SODIUM CHLORIDE 0.9% 1,000 ML IV SCH (00:12)
[2019-11-12] MEDS ORDERED: MAGNESIUM SULF RIDER 2 GM in PREMIX 1 EACH IV PRN (00:12)
[2019-11-12] MEDS ORDERED: MAGNESIUM SULF RIDER 4 GM in PREMIX 1 EACH IV PRN (00:12)
[2019-11-12] MEDS: ROFLUMILAST 500 MCG TABLET PO SCH ×3 (00:25→20:33)
[2019-11-12] MEDS: RANOLAZINE 500 MG TABLET PO SCH ×3 (00:27→20:33)
[2019-11-12] MEDS: ENOXAPARIN 40 MG/0.4 ML SYRINGE SUBCUT SCH ×2 (00:28→17:24)
[2019-11-12] MEDS: METOPROLOL SUCCINATE XL 25 MG TABLET PO SCH ×3 (00:29→20:33)
[2019-11-12] MEDS: DOXYCYCLINE HYCLATE INJ 100 MG in SODIUM CHLORIDE 0.9% 100 ML IV SCH ×2 (00:31→13:30)
[2019-11-12 00:52] LABS: ABG Base Excess 1.7 MMOL/L (-2.5-2.5); ABG Oxygen Saturation 99.2 % (95-100); ABG PCO2 49.4 MM HG (35-48); ABG PH 7.361 (7.35-7.45); ABG TCO2 24.8 MMOL/L (23-27); Allen Test Positive; Pt O2 Delivery Device BIPAP
[2019-11-12] MEDS: LEVALBUTEROL 1.25 MG/3 ML NEB RESP TX SCH ×6 (02:45→22:39)
[2019-11-12 05:31] LABS: Basophils % 0.4 % (0.0-0.8); Eosinophils % 0.4 % (0.00-10.9); Hemoglobin 11.6 GM/DL (14.0-18.0); Lymphocytes # 0.2 10*3/uL (1.4-4.0); Lymphocytes % 8.5 % (21.2-54.2); Mean Corpuscular HGB Conc 31.4 GM/DL (32-36); Mean Corpuscular Volume 86.4 FL (87-102); Monocytes % 6.1 % (1.7-12.7); Neutrophils % 84.6 % (38.7-73.9); Platelet Count 109 T/CUMM (130-400); Red Blood Count 4.28 MC/CUMM (3.8-5.5); Red Cell Distribution Width 13.5 % (9.3-17.3); White Blood Count 2.5 T/CUMM (4-12)
[2019-11-12] MEDS ORDERED: methylPREDNISolone SOD SUC 40 MG/1 ML VIAL IV SCH (06:00)
[2019-11-12 06:04] LABS: Calcium 8.8 MG/DL (8.5-10.1); Osmolality,Calculated 283.5 MOS/KG (273-304)
[2019-11-12] MEDS ORDERED: Umeclidinium-Vilanterol [Anoro Ellipta] INH SCH (09:00)
[2019-11-12] MEDS: ASPIRIN EC 81 MG TABLET PO SCH (09:20)
[2019-11-12] MEDS: CLOPIDOGREL 75 MG TABLET PO SCH (09:20)
[2019-11-12] MEDS: THEOPHYLLINE ER 300 MG TABLET PO SCH (09:20)
[2019-11-12] MEDS: TAMSULOSIN 0.4 MG CAPSULE PO SCH ×2 (09:20→17:24)
[2019-11-12] MEDS: ROSUVASTATIN 20 MG TABLET PO SCH (09:21)
[2019-11-12] MEDS: PANTOPRAZOLE 40 MG TABLET PO SCH (09:21)
[2019-11-12] MEDS: guaiFENesin/CODEINE 5 ML LIQUID PO PRN ×2 (09:27→20:33)
[2019-11-12] MEDS: methylPREDNISolone SOD SUC 40 MG/1 ML VIAL IV SCH (17:25)
[2019-11-13] MEDS: DOXYCYCLINE HYCLATE INJ 100 MG in SODIUM CHLORIDE 0.9% 100 ML IV SCH ×2 (01:30→12:56)
[2019-11-13] MEDS: LEVALBUTEROL 1.25 MG/3 ML NEB RESP TX SCH ×6 (02:37→23:46)
[2019-11-13] MEDS: methylPREDNISolone SOD SUC 40 MG/1 ML VIAL IV SCH ×2 (04:40→17:27)
[2019-11-13 04:47] LABS: Basophils % 0.1 % (0.0-0.8); Hematocrit 35.6 VOL% (42.0-52.0); Hemoglobin 11.4 GM/DL (14.0-18.0); Immature Granulocytes % 0.6 %; Immature Granulocytes Absolute 0.06 #; Lymphocytes # 0.4 10*3/uL (1.4-4.0); Lymphocytes % 4.6 % (21.2-54.2); Mean Corpuscular Volume 85.2 FL (87-102); Mean Platelet Volume 10.7 FL (9.6-12.0); Monocytes % 10.7 % (1.7-12.7); Platelet Count 132 T/CUMM (130-400); Red Blood Count 4.18 MC/CUMM (3.8-5.5); White Blood Count 9.6 T/CUMM (4-12)
[2019-11-13 05:09] LABS: Band Neutrophils 3 % (0-10); Lymphocytes 6 % (20-55); Segmented Neutrophils 85 % (50-85); Total Cells Counted 100
[2019-11-13 05:10] LABS: Hypochromasia Slight; Platelet Estimate Normal
[2019-11-13 05:15] LABS: Calcium 8.9 MG/DL (8.5-10.1); Osmolality,Calculated 279.7 MOS/KG (273-304)
[2019-11-13] MEDS: RANOLAZINE 500 MG TABLET PO SCH ×2 (09:50→21:32)
[2019-11-13] MEDS: METOPROLOL SUCCINATE XL 25 MG TABLET PO SCH ×2 (09:50→21:32)
[2019-11-13] MEDS: ASPIRIN EC 81 MG TABLET PO SCH (09:50)
[2019-11-13] MEDS: PANTOPRAZOLE 40 MG TABLET PO SCH (09:51)
[2019-11-13] MEDS: ROSUVASTATIN 20 MG TABLET PO SCH (09:51)
[2019-11-13] MEDS: TAMSULOSIN 0.4 MG CAPSULE PO SCH ×2 (09:51→17:28)
[2019-11-13] MEDS: THEOPHYLLINE ER 300 MG TABLET PO SCH (09:51)
[2019-11-13] MEDS: CLOPIDOGREL 75 MG TABLET PO SCH (09:51)
[2019-11-13] MEDS: ENOXAPARIN 40 MG/0.4 ML SYRINGE SUBCUT SCH (17:28)
[2019-11-13] MEDS: ROFLUMILAST 500 MCG TABLET PO SCH (21:32)
[2019-11-14] MEDS: DOXYCYCLINE HYCLATE INJ 100 MG in SODIUM CHLORIDE 0.9% 100 ML IV SCH ×2 (01:45→13:24)
[2019-11-14] MEDS: LEVALBUTEROL 1.25 MG/3 ML NEB RESP TX SCH ×3 (03:07→10:50)
[2019-11-14] MEDS: methylPREDNISolone SOD SUC 40 MG/1 ML VIAL IV SCH (05:02)
[2019-11-14] MEDS: THEOPHYLLINE ER 300 MG TABLET PO SCH (08:48)
[2019-11-14] MEDS: TAMSULOSIN 0.4 MG CAPSULE PO SCH (08:48)
[2019-11-14] MEDS: CLOPIDOGREL 75 MG TABLET PO SCH (08:49)
[2019-11-14] MEDS: RANOLAZINE 500 MG TABLET PO SCH (08:49)
[2019-11-14] MEDS: METOPROLOL SUCCINATE XL 25 MG TABLET PO SCH (08:49)
[2019-11-14] MEDS: ASPIRIN EC 81 MG TABLET PO SCH (08:49)
[2019-11-14] MEDS: PANTOPRAZOLE 40 MG TABLET PO SCH (08:49)
[2019-11-14] MEDS: ROSUVASTATIN 20 MG TABLET PO SCH (08:49)
[2019-11-14 14:59] VITALS: BP 125/58
== END 2019-11-14 13:16 | disposition home or self-care (01) | DRG 189 ==
LOC: N.ED 19:43 → SUATTDRO 22:09 → N.EDINP 22:09 → N.ICU 23:50 → N.4E 11-12 13:06
PROVIDERS: ADMIT Internal Medicine; ATTEND Internal Medicine